=== PATIENT | male | born 1950 | race Hispanic/Latino ===

== ENCOUNTER → 2024-06-24 | Outpatient (CLI) | payer OTHER ==
--- NOTE | 2024-06-24 13:33 | HMCIMG ---
CHEST 2VWS REASON: MRI CLEARNECE, ABANDON LEADS COMPARISON: 04/11/2022 FINDINGS: Two views of the chest were obtained. Lungs are clear. Heart size is normal. There is no pulmonary vascular congestion. Mediastinum and bony thorax appear unremarkable. There is a bipolar pacemaker in place. Previous exam showed old sets of pacemaker leads along with a right-sided pacemaker, these have been removed in the interval. IMPRESSION: 1. No acute process seen in the chest. 2. Pacemaker in place, no evidence of old pacemaker leads.
--- NOTE | 2024-06-24 16:02 | HMCIMG ---
MR SPINAL CANAL, CERV WO CON REASON: CERVICALGIA COMPARISON: None TECHNIQUE: Routine cervical imaging protocol was performed. FINDINGS: There is moderate interspace narrowing C5-6 and C6-7, there is some narrowing at C4-5 as well. Vertebral body alignment is normal. There are no compression fractures. There are no focal osseous lesions. Axial images show annular bulges at multiple levels. C3-4 level is widely patent including patent neural foramina. C4-5 shows a central disc protrusion. There is focal concavity of the anterior cord. AP diameter is between 7 and 8 mm. Neural foramina appear preserved. C6-7 shows mild annular bulging, AP diameter in the midline is between 8 and 9 mm. The right C5-6 neural foramen is markedly narrowed, the left neural foramen is markedly narrowed as well. C6-7 shows patent neural foramina. AP diameter the midline is preserved. Cervical cord and craniocervical junction appear normal. There is no abnormal signal in the cord. Stranding soft tissues appear normal. IMPRESSION: 1. Cervical spondylosis with mild to moderate stenosis C4-5. 2. Bilateral neural foraminal narrowing at C5-6.
== END | disposition home or self-care (01) ==
LOC: RAH 12:29
PROVIDERS: ATTEND Family Medicine
DX: M47.812 Spondylosis without myelopathy or radiculopathy, cervical region (principal); M48.02 Spinal stenosis, cervical region; M50.31 Other cervical disc degeneration, high cervical region; M50.323 Other cervical disc degeneration at C6-C7 level; Z95.0 Presence of cardiac pacemaker
CPT/HCPCS: 71046; 72141

== ENCOUNTER 2024-09-27 19:43 | Emergency (ER) | payer OTHER, MEDICARE ==
[~2024-09-27] VITALS: Ht 177.8 cm; Wt 80.7 kg
--- NOTE | 2024-09-27 21:18 | HMCIMG ---
FOOT COMP 3+VWS RT INDICATION: r/o foreign body TECHNIQUE: FOOT COMP 3+VWS RT. FINDINGS AND IMPRESSION: No displaced fracture or dislocation is seen. Correlate clinically. There is mild soft tissue swelling. Degenerative changes, more pronounced in the first MTP joint. No radiopaque foreign body is identified. There is diffuse osteopenia limiting evaluation of the study.
[2024-09-27] MEDS ORDERED: AMOX1TAB16 PO (21:22)
--- NOTE | 2024-09-27 21:24 | ERN ---
General Chief Complaint: FOOT INJURY/PAIN Stated Complaint: STEPPED ON NAIL Time Seen by MD: 19:53 Time Seen by Midlevel: 19:53 Source: patient History of Present Illness Initial Comments Patient is a 74-year-old male with no significant past medical history presenting to the emergency department for evaluation following a puncture wound. Patient states several days ago he accidentally stepped on a nail. He was able to remove the nail on his own and was able to wash his foot. Today he noticed an increase in redness and swelling so he decided to report to the ER for further evaluation. He specifically denies any fever, chills, or any other symptoms at this time. Patient is not up-to-date with his tetanus vaccination. Allergies: Coded Allergies: No Known Allergies (Unverified Allergy, Unknown, 04/11/22) Past Medical History Past Medical History: Anxiety, Heart Disease, Hypertension Past Surgical History: Pacer/AICD ROS Dictation CONSTITUTIONAL: Negative except for HPI HEAD/FACE: Negative except for HPI EENT: Negative except for HPI RESPIRATORY: Negative except for HPI GASTROINTESTINAL/ABDOMINAL: Negative except for HPI GENITOURINARY: Negative except for HPI MUSCULOSKELETAL: Negative except for HPI INTEGUMENTARY: Negative except for HPI NEUROLOGICAL/PSYCH: Negative except for HPI HEMATOLOGIC/LYMPHATIC: Negative except for HPI All Systems Negative, Except as noted above. 13 point review of systems assessed and all negative except for above. Physical Exam Physical Exam Dictation PHYSICAL EXAM: GENERAL: alert,, awake oriented x 3 HEENT: EOMI, Sclera non icteric, moist mucosa NECK: Supple, no JVD, trachea midline LUNGS: Clear breath sounds bilaterally. No wheezes HEART: Regular rate and rhythm. Normal S1 and S2, without murmurs ABD: Abdomen soft, nontender. Bowel sounds present EXT: No clubbing or cyanosis, NEURO: Alert and oriented to person, follows commands Skin: There is a well-healed puncture wound to the plantar aspect of the right foot, no surrounding erythema, induration, or drainable abscess MDM MDM: Differential diagnosis: Puncture wound, cellulitis, abscess, foreign body, laceration There are no social concerns with this patient. Prescription drug management Prescriptions will include: Amoxicillin Medical management and examination interpretation discussions were had by me with other qualified healthcare professionals as indicated for the patient's care. ED Course Orders Procedure Category Date Status Time Ceftriaxone 1g Vial PHA 09/27/24 In Process (Rocephine 1g Inj) 21:30 Tetanus,Diphtheria PHA 09/27/24 In Process Tox [Adult] (Diphther 21:30 Foot Comp 3+Vws Rt RAD 09/27/24 Taken 21:01 Current Medications Medications (Trade) Dose Ordered Sig/Alba Route PRN Reason Start Time Stop Time Status Last Admin Dose Admin Ceftriaxone Sodium (ROCEphine 1G INJ) 1 gm ONCE ONCE IM 09/27/24 21:30 09/27/24 21:31 Tetanus/ Diphtheria Toxoids Adsorbed (DiphthERIA-teTANUS TOXOID [ADULT]/ DECAVAC) 0.5 ml ONCE ONCE IM 09/27/24 21:30 09/27/24 21:31 Vital Signs Date Time Temp Pulse Resp B/P (MAP) Pulse Ox O2 Delivery O2 Flow Rate FiO2 09/27/24 19:44 98.2 60 18 136/63 99 Room Air DX & DISP Disposition: Discharge Departure Impression: Primary Impression: Puncture wound of right foot Condition: Stable Scripts Amoxicillin/Potassium Clav (Amox Tr-K Clv 875-125 mg Tab) 875 Mg-125 Mg Tablet 1 EACH PO BID for 7 Days, #14 TAB 0 Refills Prov: JUSTINE PENNY 09/27/24 Additional Instructions: Your right foot x-ray does not show any evidence of a retained foreign body. No acute fracture or dislocation is noted. I have given you a prescription for amoxicillin for outpatient evaluation. Referrals: RAMESH JOHNSON (PCP) I have reviewed the case, and I agree with, Diagnosis and Plan I performed the substantive portion of the visit. I have reviewed and personally made and approve the management plan that is documented in the note by myself or the JONNY. I acknowledge for responsibility for the patient's management plan. JUSTINE PENNY Sep 27, 2024 21:24
[2024-09-27] MEDS: teTANUS/diphthERIA TOXOID [ADULT] 0.5 ML VIAL IM ONE (21:40)
[2024-09-27] MEDS: cefTRIAXone 1G VIAL IM ONE (21:40)
[2024-09-27 21:41] VITALS: BP 132/65; PULSE 64; RESP 18; TEMP 98.6; O2SAT 99
== END 2024-09-27 21:54 | disposition home or self-care (01) ==
LOC: EDH 19:43
DX: S91.331A Puncture wound without foreign body, right foot, initial encounter (principal); I10 Essential (primary) hypertension; Z95.810 Presence of automatic (implantable) cardiac defibrillator; X58.XXXA Exposure to other specified factors, initial encounter; Y93.89 Activity, other specified; Y92.89 Other specified places as the place of occurrence of the external cause; Y99.8 Other external cause status
CPT/HCPCS: 99284; 90714; 73630; 96372; 90471; J0696